=== PATIENT | female | born 1995 | race African-American/Black ===

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

== ENCOUNTER 2020-03-14 13:27 | Emergency (ER) | payer OTHER | END 2020-03-14 15:27 | disposition left against medical advice (07) | LOC: FER 13:27 | DX: O99.891 Other specified diseases and conditions complicating pregnancy (principal); J02.9 Acute pharyngitis, unspecified; R09.89 Other specified symptoms and signs involving the circulatory and respiratory systems; R06.00 Dyspnea, unspecified; Z3A.18 18 weeks gestation of pregnancy; Z53.21 Procedure and treatment not carried out due to patient leaving prior to being seen by health care provider ==

== ENCOUNTER 2021-07-31 09:35 | Emergency (ER) | payer OTHER | END 2021-07-31 11:52 | disposition home or self-care (01) | LOC: FER 09:35 | DX: O9A.211 Injury, poisoning and certain other consequences of external causes complicating pregnancy, first trimester (principal); S83.001A Unspecified subluxation of right patella, initial encounter; Z3A.01 Less than 8 weeks gestation of pregnancy; X58.XXXA Exposure to other specified factors, initial encounter | CPT/HCPCS: 73560; J2704; J7040 ==